=== PATIENT | male | born 2005 | race Two or more races ===

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

== ENCOUNTER 2023-03-06 15:13 | Emergency (ER) | payer MEDICAID, SELFPAY ==
--- NOTE | 2023-03-06 15:15 | ECG_ITS ---
Test Reason : CHEST PAIN Blood Pressure : / mmHG Vent. Rate : 076 BPM Atrial Rate : 076 BPM P-R Int : 120 ms QRS Dur : 086 ms QT Int : 336 ms P-R-T Axes : 060 072 029 degrees QTc Int : 378 ms Sinus rhythm with marked sinus arrhythmia Nonspecific T wave abnormality Abnormal ECG When compared with ECG of 22-JUN-2021 02:05, Nonspecific T wave abnormality now evident in Lateral leads Referred By: Zuleyma Campbell Electronically Signed By:IVON OLIVERA
--- NOTE | 2023-03-06 15:33 | ED_ITS ---
HPI - Arrhythmia/Palpitations General Chief Complaint: Anxiety Stated Complaint: heart racing,weakness Time Seen by Provider: 03/06/23 20:42 Source: patient Mode of arrival: ambulatory Limitations: no limitations History of Present Illness HPI narrative: Patient smokes marijuana does not take any other medication smoked blunt with his friend earlier immediately after smoking noted heart racing which is unusual for him after smoking marijuana patient feels back normal now no chest pain Related Data Allergies Allergy/AdvReac Type Severity Reaction Status Date / Time No Known Allergies Allergy Verified 06/22/21 01:47 Review of Systems 2 Review of Systems: Yes all other systems are reviewed and are negative [facility] Social History Social History Advance Directives: No Advance Directives Information Provided: No Physical Exam 2 Vital Signs: Vital Signs: Last Vital Signs Temp 97.6 F 03/06/23 19:27 Pulse 75 03/06/23 19:27 Resp 16 03/06/23 19:27 BP 143/79 H 03/06/23 19:27 Pulse Ox 98 03/06/23 19:27 O2 Del Method Room Air 03/06/23 19:27 BMI result Body Mass Index 22.2 Appearance: Alert. Oriented X3. No acute distress. Neck: Normal inspection. Neck supple. CVS: Normal heart rate and rhythm. Pulses normal. Respiratory: No respiratory distress. Equal air entry bilateral, no wheezing/rales/rhonchi Abdomen: Soft and nontender. Bowel sounds are present, no mass palpable, no CVA tenderness Skin: Skin warm and dry. Normal skin color. Normal skin turgor. Extremities: No lower extremity edema. No calf tenderness Neuro: Oriented X 3. No motor deficit. Course Course Course Narrative: This is a rapid medical exam. Deferred additional HPI, ROS, PE to primary provider. 17 yo male with history of ADHD here with complaints of headache, palpitations, dizziness after smoking marijuana several hours ago. Will obtain EKg, labs. VSS Medical Decision Making Medical Decision Making MDM Narrative: Patient's symptoms likely from speed ball in the blunt urine positive for amphetamine patient denied use of any medication for ADHD Lab Data [facility] Lab Attestation statement: I reviewed the patient's lab results. 03/06/23 15:52 03/06/23 15:52 Labs: Lab Results 03/06/23 03/06/23 03/06/23 Range/Units 15:52 15:52 15:52 WBC 12.4 H (4.8-10.8) X10*3/uL RBC 5.12 (4.60-5.80) X10*6/uL Hgb 15.1 (14.0-18.0) g/dl Hct 43.8 (42.0-52.0) % MCV 85.5 (80.0-98.0) fL MCH 29.5 (27.0-33.0) pg MCHC 34.5 (31.0-36.0) g/dl RDW 13.0 (11.0-16.0) % Plt Count 319 (160-400) X10*3/uL MPV 10.4 (9.4-12.4) fL Immature Gran % (Auto) 0.2 (0.0-0.4) % Neut % (Auto) 74.5 H (45-73) % Lymph % (Auto) 16.2 L (20-40) % [place] % (Auto) 8.7 (2-11) % Eos % (Auto) 0.2 (0-4) % Baso % (Auto) 0.2 (0-2) % Lymph # (Auto) 2.0 (1.2-4.9) X10*3/uL [place] # (Auto) 1.1 (0.1-1.2) X10*3/uL Eos # (Auto) 0.0 (0.0-0.4) X10*3/uL Baso # (Auto) 0.0 (0.0-0.2) X10*3/uL Abs Immat Gran (auto) 0.03 (0.00-0.03) X10*3/uL Absolute Neuts (auto) 9.3 H (2.0-8.3) x10*3/uL Absolute Nucleated RBC 0.000 (0.0-0.012) X10*3/uL Nucleated RBC % (auto) 0.0 (0.0-0.2) /100WBC Sodium 136 (135-145) mmol/L Potassium 3.9 (3.3-5.1) mmol/L Chloride 102 (96-108) mmol/L Carbon Dioxide 23 (22-29) mmol/L Anion Gap 15 (12-20) BUN 9 (9-16) mg/dL Creatinine 0.86 (0.5-1.4) mg/dL Estim Creat Clear Calc 144.9 Estimated GFR > 60 Random Glucose 90 (60-115) mg/dL Calcium 10.9 H (8.4-10.2) mg/dL Magnesium 1.9 (1.6-2.6) mg/dL Total Bilirubin 2.4 H (0.0-1.0) mg/dL Direct Bilirubin 0.6 H (0.0-0.5) mg/dL AST 17 (5-37) U/L ALT 19 (0-40) U/L Alkaline Phosphatase 79 (39-117) U/L Troponin I High Sens < 2.7 (<3.5-35.0) ng/L Total Protein 8.6 H (6.5-8.0) g/dL Albumin 5.2 H (3.5-5.0) g/dL Urine Opiates Screen (Not Detect) Urine Fentanyl Screen (Not Detect) Ur Barbiturates Screen (Not Detect) Ur Phencyclidine Scrn (Not Detect) Ur Amphetamines Screen (Not Detect) U Benzodiazepines Scrn (Not Detect) Urine Cocaine Screen (Not Detect) U Marijuana (THC) Screen (Not Detect) 03/06/23 Range/Units 19:33 WBC (4.8-10.8) X10*3/uL RBC (4.60-5.80) X10*6/uL Hgb (14.0-18.0) g/dl Hct (42.0-52.0) % MCV (80.0-98.0) fL MCH (27.0-33.0) pg MCHC (31.0-36.0) g/dl RDW (11.0-16.0) % Plt Count (160-400) X10*3/uL MPV (9.4-12.4) fL Immature Gran % (Auto) (0.0-0.4) % Neut % (Auto) (45-73) % Lymph % (Auto) (20-40) % [place] % (Auto) (2-11) % Eos % (Auto) (0-4) % Baso % (Auto) (0-2) % Lymph # (Auto) (1.2-4.9) X10*3/uL [place] # (Auto) (0.1-1.2) X10*3/uL Eos # (Auto) (0.0-0.4) X10*3/uL Baso # (Auto) (0.0-0.2) X10*3/uL Abs Immat Gran (auto) (0.00-0.03) X10*3/uL Absolute Neuts (auto) (2.0-8.3) x10*3/uL Absolute Nucleated RBC (0.0-0.012) X10*3/uL Nucleated RBC % (auto) (0.0-0.2) /100WBC Sodium (135-145) mmol/L Potassium (3.3-5.1) mmol/L Chloride (96-108) mmol/L Carbon Dioxide (22-29) mmol/L Anion Gap (12-20) BUN (9-16) mg/dL Creatinine (0.5-1.4) mg/dL Estim Creat Clear Calc Estimated GFR Random Glucose (60-115) mg/dL Calcium (8.4-10.2) mg/dL Magnesium (1.6-2.6) mg/dL Total Bilirubin (0.0-1.0) mg/dL Direct Bilirubin (0.0-0.5) mg/dL AST (5-37) U/L ALT (0-40) U/L Alkaline Phosphatase (39-117) U/L Troponin I High Sens (<3.5-35.0) ng/L Total Protein (6.5-8.0) g/dL Albumin (3.5-5.0) g/dL Urine Opiates Screen Not Detected (Not Detect) Urine Fentanyl Screen Not Detected (Not Detect) Ur Barbiturates Screen Not Detected (Not Detect) Ur Phencyclidine Scrn Not Detected (Not Detect) Ur Amphetamines Screen POSITIVE H (Not Detect) U Benzodiazepines Scrn Not Detected (Not Detect) Urine Cocaine Screen Not Detected (Not Detect) U Marijuana (THC) Screen POSITIVE H (Not Detect) Independent Interpretation I performed an independent interpretation of an: EKG Interpretation: Normal sinus rhythm heart rate 76 beats per minute normal interval normal axis no acute ST-T change Discharge Plan Discharge Clinical Impression: Substance abuse Patient Disposition: Home, Self-Care Instructions: Polysubstance Abuse (ED) Additional Instructions: Do not use marijuana given to you by somebody else as it can be contaminated likely this time was with speed/amphetamine Interventions: ED Discharge Assessment Last Done: 03/06/23 21:15 Discharge Date/Time: 03/06/23 21:16
[2023-03-06 15:35] VITALS: BP 143/86; PULSE 114; RESP 18; TEMP 37.9; O2SAT 100; BMI 22.2
[2023-03-06 16:02] LABS: MANUAL DIFF FLAG NO
[2023-03-06 16:04] LABS: Basophils Percent Auto 0.2 % (0-2); Eosinophils Percent Auto 0.2 % (0-4); Hematocrit 43.8 % (42.0-52.0); Hemoglobin 15.1 g/dl (14.0-18.0); Imm Gran Abs Auto 0.03 X10*3/uL (0.00-0.03); Imm Gran Pct Auto 0.2 % (0.0-0.4); Lymphocytes Percent Auto 16.2 % (20-40); Mean Corpuscular HGB Conc 34.5 g/dl (31.0-36.0); Mean Corpuscular Hemoglobin 29.5 pg (27.0-33.0); Mean Corpuscular Volume 85.5 fL (80.0-98.0); Mean Platelet Volume 10.4 fL (9.4-12.4); Monocytes Absolute Auto 1.1 X10*3/uL (0.1-1.2); Monocytes Percent Auto 8.7 % (2-11); Neutrophils Absolute Auto 9.3 x10*3/uL (2.0-8.3); Neutrophils Percent Auto 74.5 % (45-73); Platelet Count 319 X10*3/uL (160-400); Red Blood Count 5.12 X10*6/uL (4.60-5.80); White Blood Count 12.4 X10*3/uL (4.8-10.8)
[2023-03-06 16:27] LABS: Alanine Aminotransferase 19 U/L (0-40); Albumin Level 5.2 g/dL (3.5-5.0); Alkaline Phosphatase 79 U/L (39-117); Anion Gap 15 (12-20); Aspartate Amino Transferase 17 U/L (5-37); Bilirubin Direct 0.6 mg/dL (0.0-0.5); Bilirubin Total 2.4 mg/dL (0.0-1.0); Blood Urea Nitrogen 9 mg/dL (9-16); Calcium 10.9 mg/dL (8.4-10.2); Carbon Dioxide 23 mmol/L (22-29); Chloride 102 mmol/L (96-108); Creatinine Clr Calc Pharmacy 144.9; Estimated Glomerular Filt Rate > 60; Glucose Random 90 mg/dL (60-115); Magnesium 1.9 mg/dL (1.6-2.6); Potassium 3.9 mmol/L (3.3-5.1); Sodium 136 mmol/L (135-145); Total Protein 8.6 g/dL (6.5-8.0)
[2023-03-06 16:47] LABS: Troponin-I High Sensitivity < 2.7 ng/L (<3.5-35.0)
[2023-03-06 19:27] VITALS: BP 143/79; PULSE 75; RESP 16; TEMP 36.4; O2SAT 98
--- NOTE | 2023-03-06 19:36 | MHC.EDTECH ---
THIS PCT ASSUMED CARE OF PT AT 1900 ,VITALS SIGN TAKEN ,URINE SAMPLE COLLECTED AND SENT TO LAB .
[2023-03-06 20:14] LABS: Amphetamine Screen Urine POSITIVE (Not Detect); Barbiturates, Urine Not Detected (Not Detect); Benzodiazepines Screen Urine Not Detected (Not Detect); Cannabinoid Screen Urine POSITIVE (Not Detect); Cocaine Screen Urine Not Detected (Not Detect); Fentanyl, urine Not Detected (Not Detect); Opiate Screen Urine Not Detected (Not Detect); Phencyclidine Screen Urine Not Detected (Not Detect)
--- NOTE | 2023-03-06 21:15 | PC.NURSE ---
pt a&ox3. respirations even and unlabored. pt reports anxiety has subsided at this time. pt denies SOB and chest pain.
== END 2023-03-06 21:16 | disposition home or self-care (01) ==
PROVIDERS: Nurse Practitioner Family; Emergency Provider Internal Medicine
DX: F19.10 Other psychoactive substance abuse, uncomplicated (principal); F41.9 Anxiety disorder, unspecified; R00.2 Palpitations
CPT/HCPCS: 36415; 80048; 80076; 80307; 83735; 84484; 85025; 93005; 99284

== ENCOUNTER 2023-08-22 09:11 | Emergency (ER) | payer OTHER, SELFPAY ==
--- NOTE | ~2023-08-22 | CT_ITS ---
EXAMINATION: CT HEAD WITHOUT CONTRAST CLINICAL INFORMATION: Head strike. Nausea vomiting COMPARISON: None available. TECHNIQUE: Contiguous axial imaging was performed from the skull base to vertex without intravenous administration of contrast. This CT examination was performed using dose optimization techniques as appropriate, variously including the following: *Automated exposure control *Adjustment of mA and/or kV according to patient size (this includes techniques or standardized protocols for targeted exams where dose is matched to indication/reason for exam; i.e. extremities or head) *Use of iterative reconstruction technique DLP: 722 mGy-cm FINDINGS: No intra or extra-axial fluid collection or hemorrhage, mass or mass effect. Calvarium is intact. There is mucoperiosteal thickening observed in the ethmoid sinuses. CT/CT head/brain wo IV con IMPRESSION: No acute intracranial pathology.
--- NOTE | ~2023-08-22 | CT_ITS ---
EXAMINATION: CT CERVICAL SPINE WITHOUT CONTRAST CLINICAL INFORMATION: Neck injury and pain COMPARISON: None available. TECHNIQUE: Multiple 3.0 and 0.6 mm axial images were obtained from base of skull to T1 levels without IV contrast enhancement. Sagittal and coronal 2.0 mm bone window images were reconstructed from axial image data. This CT examination was performed using dose optimization techniques as appropriate, variously including the following: *Automated exposure control *Adjustment of mA and/or kV according to patient size (this includes techniques or standardized protocols for targeted exams where dose is matched to indication/reason for exam; i.e. extremities or head) *Use of iterative reconstruction technique DLP: 450 mGy-cm FINDINGS: C1/C2: Bony structures are intact with normal alignment. There is no spinal stenosis. C2/C3: Bony structures are intact with normal alignment. There is no spinal stenosis. Bilateral C2/C3 neuroforamina are patent. Bilateral apophyseal joints are intact with normal alignment. C3/C4: Bony structures are intact with normal alignment. There is no spinal stenosis. Bilateral C3/C4 neuroforamina are patent. Bilateral apophyseal joints are intact with normal alignment. C4/C5: Bony structures are intact with normal alignment. There is no spinal stenosis. Bilateral C4/C5 neuroforamina are patent. Bilateral apophyseal joints are intact with normal alignment. C5/C6: Bony structures are intact with normal alignment. There is no spinal stenosis. Bilateral C5/C6 neuroforamina are patent. Bilateral apophyseal joints are intact with normal alignment. C6/C7: Bony structures are intact with normal alignment. There is no spinal stenosis. Bilateral C6/C7 neuroforamina are patent. Bilateral apophyseal joints are intact with normal alignment. C7/T1: Bony structures are intact with normal alignment. There is no spinal stenosis. Bilateral C7/T1 neuroforamina are patent. Bilateral apophyseal joints are intact with normal alignment. CT/CT cervical spine wo IV con IMPRESSION: 1. Normal CT scan of the cervical spine. No cervical fracture or dislocation is seen.
[2023-08-22 09:32] VITALS: BP 124/82; PULSE 76; RESP 16; TEMP 37.3; O2SAT 97; BMI 21.6
--- OUTSIDE RECORDS SUMMARY | 2023-08-22 10:19 | XMS_ITS | Continuity of Care Document ---
Author Name Unknown Organization [facility] ter Address [address] [place] [id number]- Care Team Providers Care Structural Metal Fabricator Apprentice Name Role Phone Not on Staff, PCP Primary Care Physician Unavail able [place] [facility] [place] 08/12/[address] [address]- Encounter Diagnosis Headache(Final) - 08/12/23 Discharge Disposition: A-D/C Home Attending Physician: Guanako Torres MD Admitting Physician: Guanako Torres MD Referring Physician: Not on Staff, Referring MD Allergies, Adverse Reactions, Alerts No Known Medication Allergies Results Radiology Reports * Exam Date Time Procedure Performing Provider Status 08/12/23 4:29 PM Hand Min 3 Views Right Sabiha Gandhi; Au th (Verified) Notes: (Hand Min 3 Views Right) Reason For Exam: Trauma RESULT: Hand Min 3 Views Right Hand Min 3 Views Right, 3 views Hx of Present Illness: rudolph x 2 days also dizziness and nausea; Reason: Trauma; Clinical Question(s):Fracture COMPARISON: None. FINDINGS: No fractures or bone lesions. No arthritic changes. Normal soft tissues. IMPRESSION: No acute osseous abnormality is seen involving the right hand. WSN: [id number] Ordering Physician: Atif Tomas Dictated By: Gerardo Cartagena MD, V Dictated Date/Time: 08/12/23 4:31 pm Reviewed By: Gerardo Cartagena MD, V Signed By: Gerardo Cartagena MD, V Signed Date/Time: 08/12/23 4:31 pm Transcribed By: CHERYL Transcribed Date/Time: 08/12/23 4:31 pm * Exam Date Time Procedure Performing Provider Status 08/12/23 4:29 PM Chest 2 Views Frontal and Lat Sabiha Gandhi; Auth (Verified) Notes: (Chest 2 Views Frontal and Lat) Reason For Exam: Shortness of Breath, Fever;Other: RESULT: Chest 2 Views Frontal and Lat Chest 2 Views Frontal and Lat Hx of Present Illness: rudolph x 2 days also dizziness and nausea; Reason: Other:; Shortness of Breath, Fever; Clinical Question(s): Pneumonia COMPARISON: None FINDINGS: LINES AND TUBES: None. LUNGS AND PLEURA: The lungs are clear. No pleural effusion. No pneumothorax. HEART, MEDIASTINUM AND ADDI: Normal. BONES AND SOFT TISSUES: Normal. IMPRESSION: Normal. WSN: [id number] Ordering Physician: Atif Tomas Dictated By: Gerardo Cartagena MD, V Dictated Date/Time: 08/12/23 4:30 pm Reviewed By: Gerardo Cartagena MD, V Signed By: Gerardo Cartagena MD, V Signed Date/Time: 08/12/23 4:30 pm Transcribed By: CHERYL Transcribed Date/Time: 08/12/23 4:30 pm * Exam Date Time Procedure Performing Provider Status 08/12/23 3:46 PM US RUQ Dulce Shankar; Rony (V erified) Notes: (US RUQ) Reason For Exam: Abdominal Pain;Other: RESULT: US RUQ US RUQ Reason: Abdominal Pain; Clinical Question(s): Cholecystitis COMPARISON: None. FINDINGS: Liver: Normal in size and echotexture. No focal lesion. Smooth hepatic contour. Main portal vein patent with normal hepatopetal direction of flow. Gallbladder: No gallstones. Small amount of floating echogenic debris visualized within the lumen. Normal wall thickness. No pericholecystic fluid. Negative Mcfadden sign. Biliary Tree: No intrahepatic or extrahepatic bile duct dilation is identified. Common duct measures: 0.4 cm. Pancreas: No abnormality in the visualized portions of the pancreas. Right kidney: 10.6 cm in length. Normal parenchymal echotexture and thickness. No hydronephrosis, stone or mass. IMPRESSION: No sonographic evidence of cholelithiasis or acute cholecystitis. WSN: [id number] Ordering Physician: Atif Tomas Dictated By: Lauro Lee MD Dictated Date/Time: 08/12/23 3:57 pm Reviewed By: Lauro Lee MD Signed By: Lauro Lee MD Signed Date/Time: 08/12/23 3:57 pm Transcribed By: CHERYL Transcribed Date/Time: 08/12/23 3:54 pm Vital Signs Most recent to oldest [Reference Range]: 1 2 Height 183 cm (08/12/23 6:13 PM) 183 cm (08/12/23 1:23 PM) Weight 75 kg (08/12/23 6:13 PM) 75 kg (08/12/23 1:23 PM) Oxygen Saturation [94-100 %] 100 % (08/12/23 6:13 PM) 98 % (08/12/23 1:23 PM) Pulse Rate [55-90 bpm] 89 bpm (08/12/23 6:13 PM) 94 bpm *H* (08/12/23 1:23 PM) Body Mass Index [18.5-24.99 kg/m2] 22.4 kg/m2 (08/12/23 1:23 PM) Blood Pressure [90-138/55-84 mm Hg] 112/ 78mm Hg (08/12/23 6:13 PM) 167/94mm Hg *H* (08/12/23:23 PM) Respiratory Rate [16-30 br/min] 22 br/mi n (08/12/23 6:13 PM) 18 br/min (08/12/23 1:23 PM) Temperature [96.8-100.4 DegF] 98.4 DegF (08/12/23 6:13 PM) 98.2 DegF (08/12/23:23 PM) Mode of Delivery (Oxygen) Room air (08/12/23 6:13 PM) Room air (08/12/23 1:23 PM) Blood pressure sites Arm, right (08/12/23 6:13 PM) Arm, right (08/12/23 1:23 PM) Temperature Route Oral (08/12/23 6:13 PM) Oral (08/12/23 1:23 PM) Dry Weight 75 kg (08/12/23 6:13 PM) 75 kg (08/12/23 1:23 PM) Weight Obtained Via Patient/family state d (08/12/23 1:23 PM) Dry Weight Obtained Via Patient/family s tated (08/12/23 1:23 PM) Height Percentile 80.72 % 1 (08/12/23 6:13 PM) 80.72 % 2 (08/12/23 1:23 PM) Height ZScore 0.87 3 (08/12/23 6:13 PM) 0.87 4 (08/12/23 1:23 PM) Weight Percentile Per Age 64.71 % 5 (08/12/23 6:13 PM) 64.71 % 6 (08/12/23 1:23 PM) BMI Percentile 42.58 7 (08/12/23 1:23 PM) BMI ZScore -0.19 8 (08/12/23 1:23 PM) Weight ZScore 0.38 9 (08/12/23 6:13 PM) 0.38 10 (08/12/23 1:23 PM) 1Result Comment: ^~:!Percentile Source -CDC/WHO 2Result Comment: ^~:!Percentile Source -CDC/WHO 3Result Comment: ^~:!ZScore Source -CDC/WHO 4Result Comment: ^~:!ZScore Source -CDC/WHO 5Result Comment: ^~:!Percentile Source -CDC/WHO 6Result Comment: ^~:!Percentile Source -CDC/WHO 7Result Comment: ^~:!Percentile Source -CDC/WHO 8Result Comment: ^~:!ZScore Source -CDC/WHO 9Result Comment: ^~:!ZScore Source -CDC/WHO 10Result Comment: ^~:!ZScore Source -CDC/WHO Social History Social History Type Response Sex Male EKG study * Event Display: ECG 12-Lead Authored Date: Please click on pdf link to open report * Event Display: ECG 12-Lead Authored Date: Ventricular Rate: 58 BPM Atrial Rate: 58 BPM P-R Interval: 120 ms QRS Duration: 78 ms Q-T Interval: 440 ms QTC Calculation(Bazett): 431 ms P Gilbert: 29 degrees R Gilbert: 59 degrees T Gilbert: 39 degrees Sinus bradycardia with marked sinus arrhythmia Otherwise normal ECG No previous ECGs available Confirmed by KIET MELGOZA ([id number]) on 08/12/2023 6:34:56 PM [place]: KIET MELGOZA Patient Care team information Care Team Personnel Name: Not on Staff, PCP Position: S Physician (General Medicine) Member Role: PCP
--- OUTSIDE RECORDS SUMMARY | 2023-08-22 10:19 | XMS_ITS | Continuity of Care Document ---
Author Name Unknown Organization [facility] ter Address [address] [place] [id number]- Care Team Providers Care Marketing Intern Name Role Phone Not on Staff, PCP Primary Care Physician Unavail able Encounter [facility] Date(s): 01/09/20 - 01/10/[address] [address]- [facility] Discharge Disposition: A-D/C Home Attending Physician: Jabari Jackson MD Admitting Physician: Jabari Jackson MD Referring Physician: Not on Staff, Referring MD Allergies, Adverse Reactions, Alerts No Known Medication Allergies Results Radiology Reports * Exam Date Time Procedure Performing Provider Status 01/10/20 1:33 AM Mandible Comp Min 4 Views Shaye Kaur; Auth (Verified) Notes: (Mandible Comp Min 4 Views) Reason For Exam: Trauma with Pain;Other: RESULT: Mandible Comp Min 4 Views Mandible Comp Min 4 Views INDICATION: Refer to EMR; Reason: Other:; Trauma with Pain; Clinical Question(s): Dislocation of TMJ; Hx of Present Illness: pt was playing football and collided with another person. Jaw face to head. No LOC but got dizzy right away and c o nausea now. Laceration to inner right upper lip. bleeding c ontrolled.. COMPARISON: None FINDINGS: The mandible is intact without fracture. The TMJs appear normally oriented. No bone lesions. Unerupted wisdom molars noted. No air-fluid levels within the sinuses. Orbits appear intact. IMPRESSION: No acute findings. WSN: [id number] Ordering Physician: Tasia Ballesteros Dictated By: Juancho Glynn MD Dictated Date/Time: 01/10/20 10:30 a Reviewed By: Juancho Glynn MD Signed By: Juancho Glynn MD Signed Date/Time: 01/10/20 10:30 am Transcribed By: CSB Transcribed Date/Time: 01/10/20 10:28 am Vital Signs Most recent to oldest [Reference Range]: 1 2 Height 183 cm (01/10/20 1:02 AM) 183 cm (01/09/20 11:10 PM) Weight 87.5 kg (01/10/20 1:02 AM) 87.5 kg (01/09/20 11:10 PM) Oxygen Saturation [94-100 %] 100 % (01/10/20 1:02 AM) 100 % (01/09/20 11:10 PM) Pulse Rate [55-90 bpm] 65 bpm (01/10/20 1:02 AM) 107 bpm *H* (01/09/20 11:10 PM) Body Mass Index [18.5-24.99] 26.13 *H* (01/10/20 1:02 AM) 26.13 *H* (01/09/20 11:10 PM) Blood Pressure [80-130/50-80 mm Hg] 114/ 59mm Hg (01/10/20 1:02 AM) 132/83mm Hg *H* (01/09/20 11:10 PM) Respiratory Rate [16-30 br/min] 18 br/mi n (01/10/20 1:02 AM) 20 br/min (01/09/20 11:10 PM) Temperature [96.8-100.4 DegF] 98.2 DegF (01/10/20 1:02 AM) 99.3 DegF (01/09/20 11:10 PM) Mode of Delivery (Oxygen) Room air (01/10/20 1:02 AM) Room air (01/09/20 11:10 PM) Blood pressure sites Arm, left (01/10/20 1:02 AM) Arm, left (01/09/20 11:10 PM) Temperature Route Oral (01/10/20 1:02 AM) Oral (01/09/20 11:10 PM) Dry Weight 87.5 kg (01/10/20 1:02 AM) 87.5 kg (01/09/20 11:10 PM) Weight Obtained Via Standing scale (01/09/20 11:10 PM) Social History Social History Type Response Sex Male
--- NOTE | 2023-08-22 10:59 | ED.HA ---
HPI - Headache General Chief Complaint: Headache Stated Complaint: Concussion Time Seen by Provider: 08/22/23 10:13 Source: patient and RN notes reviewed Mode of arrival: ambulatory Limitations: no limitations History of Present Illness HPI Narrative: This is a 17-year-old male, with no known medical problems, presenting to the emergency department complaints of headache, nausea and vomiting status post head injury. Patient states that approximately 2 weeks ago he fell and struck his head, and then again was struck in the head last night. Patient states that 2 weeks ago he was walking and accidentally tripped and fell onto his head. He is unsure if he lost consciousness at that time, however had nausea, vomiting, and headaches. He was seen at [facility] where they performed labs as well as a gallbladder ultrasound and discharged without getting a head CT. Patient reports that last night he was playing basketball and was elbowed in the right side of his face. He fell to the ground. He did not lose consciousness. He states that he had a minor headache at that time however states throughout the evening last night his headache became worse, and has had nausea and vomiting. He has been unable to tolerate p.o. secondary to nausea and vomiting. He endorses dizziness, photophobia, and phonophobia. He has not on blood thinners. MD elicited complaint: headache Pertinent past history: recent trauma Onset (ago): day(s) Onset description: gradually Location: diffuse Severity: moderate Quality & Timing: aching and throbbing Exacerbating factors: light and noise Relieving factors: rest Associated symptoms: none Treatments prior to arrival: none Related Data Previous Rx's Medication Instructions Recorded ondansetron 4 mg disintegrating 4 mg PO Q6-8H PRN nausea and 08/22/23 tablet vomiting #14 tabs Allergies Allergy/AdvReac Type Severity Reaction Status Date / Time No Known Allergies Allergy Verified 08/22/23 09:32 Review of Systems Review of Systems: Yes all other systems are reviewed and are negative Constitutional: Constitutional: Reports as per [facility] Past Medical History Attestation statement: The following information was validated with the patient. Social History Social History Advance Directives: No Advance Directives Information Provided: No Physical Exam Vital Signs: Vital Signs: Last Vital Signs Temp 99.1 F 08/22/23 09:32 Pulse 76 08/22/23 09:32 Resp 16 08/22/23 09:32 BP 124/82 08/22/23 09:32 Pulse Ox 97 08/22/23 09:32 O2 Del Method Room Air 08/22/23 09:32 BMI result Body Mass Index 21.6 Const: General: cooperative, comfortable and no acute distress Orientation/consciousness: patient oriented x3 Limitations: no limitations HEENT: Head: Yes normal to inspection, Yes normocephalic and Yes atraumatic Ears: hearing grossly normal bilaterally General nose exam: Normal external nose present Face and sinus: Yes normal facial exam Mouth: Normal oral and palatal mucosa present, oropharynx normal and moist mucous membranes Throat: Yes posterior oropharynx normal Eyes: General: appearance normal, both eyes and all related structures Eyelids: Yes eyelids normal Conjunctivae: conjunctivae normal Sclerae: sclerae normal Pupils: Equal, round and reactive pupils present EOM: EOMs intact bilaterally Neck: Other: Tenderness palpation along the cervical paraspinous muscles, full range of motion of the neck Neck: Yes normal visual inspection, Yes full ROM and Yes no lymphadenopathy Lymphatic: no lymphadenopathy noted Chest: Chest palpation & inspection: normal inspection of the chest Resp: Effort & Inspection: normal respiratory effort and able to speak in complete sentences Auscultation: clear to auscultation bilaterally, no crackles, no rales, no rhonchi and no wheezes Cardio: Rate: regular rate Rhythm: regular rhythm Heart sounds: S1 normal heart sound present and S2 normal heart sound present GI: Inspection: Yes normal to inspection Skin: General skin exam: no rashes or lesions noted Trauma: no lacerations or abrasions Wounds: no wounds Neuro: General: patient oriented x3 and moves all extremities Cranial nerves: Yes CN's II-XII intact bilaterally, Yes Equal, round and reactive pupils present, Yes Normal facial strength present and Yes Midline tongue present Cognition (Neuro): normal cognition Gait exam (Neuro): Normal gait present Motor exam (neuro): 5/5 motor strength present throughout and Pronator motor function not present Coordination: [id number] test normal and [id number] test normal Romberg Test: Negative Extrem: General: Yes normal to inspection Right upper extremity: normal to inspection Left upper extremity: normal to inspection Right lower extremity: normal to inspection Left lower extremity: normal to inspection Course Reevaluation(s) Reevaluation #1: CT head unremarkable. He is eating and drinking without difficulty. Reports that his nausea has resolved. He declined Tylenol. He is feeling much better and would like to be discharged. CT cervical spine returns, unremarkable. Discussed findings with patient as well as the importance of return to play protocol. He likely has a concussion as well as postconcussive syndrome, educated the importance of mental and physical rest. Given strict return precautions. He understands agrees with plan. Patient stable for discharge. Time: 14:50 Medications Administered Discontinued Medications Generic Name Dose Route Start Last Admin Trade Name Freq PRN Reason Stop Dose Admin Ondansetron HCl 4 mg 08/22/23 10:58 08/22/23 11:01 Ondansetron Odt 4 Mg Tab.Rapdis TRANSLINGU 08/22/23 10:59 4 mg ONCE ONE Administration Medical Decision Making Medical Decision Making MDM Narrative: This is a 17-year-old male, with no known medical problems, presenting to the emergency department with complaints of headache, nausea and vomiting status post head strike. He had a head injury [address] scan obtained, and another head injury which occurred last night. He has been unable to tolerate p.o. secondary to nausea vomiting and headache. He is neurologically intact. Strength 5/5 in upper and lower extremities. Sensation intact. Given 2 episodes of head trauma with associated nausea, vomiting and photophobia, will obtain CT head and neck to rule out any intracranial process. Differential diagnoses include ICH, subdural hematoma, concussion, postconcussive syndrome, intracranial mass. Differential Diagnosis Differential Diagnoses: The differential diagnosis associated with the presentation includes See above Admission/Observation Consideration of admission/observation: Escalation of care including admission/observation considered Radiology Impression Discussion of test interpretation with radiology: I have reviewed the radiologist's reading. Radiologist Impression: EXAMINATION: CT HEAD WITHOUT CONTRAST CLINICAL INFORMATION: Head strike. Nausea vomiting COMPARISON: None available. TECHNIQUE: Contiguous axial imaging was performed from the skull base to vertex without intravenous administration of contrast. This CT examination was performed using dose optimization techniques as appropriate, variously including the following: *Automated exposure control *Adjustment of mA and/or kV according to patient size (this includes techniques or standardized protocols for targeted exams where dose is matched to indication/reason for exam; i.e. extremities or head) *Use of iterative reconstruction technique DLP: 722 mGy-cm FINDINGS: No intra or extra-axial fluid collection or hemorrhage, mass or mass effect. Calvarium is intact. There is mucoperiosteal thickening observed in the ethmoid sinuses. CT/CT head/brain wo IV con IMPRESSION: No acute intracranial pathology. Dictated By: Frank Cisse MD EXAMINATION: CT CERVICAL SPINE WITHOUT CONTRAST CLINICAL INFORMATION: Neck injury and pain COMPARISON: None available. TECHNIQUE: Multiple 3.0 and 0.6 mm axial images were obtained from base of skull to T1 levels without IV contrast enhancement. Sagittal and coronal 2.0 mm bone window images were reconstructed from axial image data. This CT examination was performed using dose optimization techniques as appropriate, variously including the following: *Automated exposure control *Adjustment of mA and/or kV according to patient size (this includes techniques or standardized protocols for targeted exams where dose is matched to indication/reason for exam; i.e. extremities or head) *Use of iterative reconstruction technique DLP: 450 mGy-cm FINDINGS: C1/C2: Bony structures are intact with normal alignment. There is no spinal stenosis. C2/C3: Bony structures are intact with normal alignment. There is no spinal stenosis. Bilateral C2/C3 neuroforamina are patent. Bilateral apophyseal joints are intact with normal alignment. C3/C4: Bony structures are intact with normal alignment. There is no spinal stenosis. Bilateral C3/C4 neuroforamina are patent. Bilateral apophyseal joints are intact with normal alignment. C4/C5: Bony structures are intact with normal alignment. There is no spinal stenosis. Bilateral C4/C5 neuroforamina are patent. Bilateral apophyseal joints are intact with normal alignment. C5/C6: Bony structures are intact with normal alignment. There is no spinal stenosis. Bilateral C5/C6 neuroforamina are patent. Bilateral apophyseal joints are intact with normal alignment. C6/C7: Bony structures are intact with normal alignment. There is no spinal stenosis. Bilateral C6/C7 neuroforamina are patent. Bilateral apophyseal joints are intact with normal alignment. C7/T1: Bony structures are intact with normal alignment. There is no spinal stenosis. Bilateral C7/T1 neuroforamina are patent. Bilateral apophyseal joints are intact with normal alignment. CT/CT cervical spine wo IV con IMPRESSION: 1. Normal CT scan of the cervical spine. No cervical fracture or dislocation is seen. Dictated By: Benny Dyer Discharge Plan Discharge Clinical Impression: Postconcussion syndrome, Closed head injury Patient Disposition: Home, Self-Care Instructions: Head Injury (ED), Post Concussion Syndrome (ED) Additional Instructions: You were seen in the emergency department after a head injury. You likely have a concussion and postconcussion syndrome. This can cause worsening headache, nausea and vomiting. It is very important that you take close precautions while he have a concussion. Physical and mental rest, can help heal your brain faster. Quiet room, avoiding prolonged screen time, and reading can help facilitate the healing process. Do not return to physical activity until you are completely asymptomatic. This sometimes can take multiple weeks for you to get better. I advised her to follow-up with your wellness Center to have the return to play protocol initiated given your symptoms. You may take Tylenol as needed for pain. I am also prescribing you Zofran, this is a antinausea medication that he can take as needed for nausea and vomiting. If any new or worsening symptoms occur including but not limited to worsening headaches, dizziness, lightheadedness, inability to eat or drink secondary to vomiting, chest pain or shortness of breath, please return for re-evaluation Prescriptions: New ondansetron 4 mg tablet,disintegrating 4 mg PO Q6-8H PRN (Reason: nausea and vomiting) Qty: 14 0RF Stand Alone Forms: Work/School Release Interventions: ED Discharge Assessment Last Done: 08/22/23 14:48 Discharge Date/Time: 08/22/23 14:49
[2023-08-22] MEDS: Ondansetron ODT 4 MG TAB.RAPDIS TRANSLINGU (11:01)
== END 2023-08-22 14:49 | disposition home or self-care (01) ==
PROVIDERS: Emergency Provider Emergency Medicine; PCP Nurse Practitioner Pediatrics
DX: S06.0X0A Concussion without loss of consciousness, initial encounter (principal); R51.9 Headache, unspecified; M54.2 Cervicalgia; R11.2 Nausea with vomiting, unspecified; W01.10XA Fall on same level from slipping, tripping and stumbling with subsequent striking against unspecified object, initial encounter; Y93.9 Activity, unspecified; Y92.9 Unspecified place or not applicable; Y99.8 Other external cause status
CPT/HCPCS: 70450; 72125; 99282; 99284